=== PATIENT | female | born 1955 | race African-American/Black ===

== ENCOUNTER 2016-10-05 13:13 | Emergency (ER) ==
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
[2016-10-05 14:36] LABS: URINE SOURCE CLEAN CATCH
[2016-10-05 14:50] LABS: BILIRUBIN URINE NEGATIVE (NEGATIVE); BLOOD URINE NEGATIVE (NEGATIVE); CLARITY CLEAR (CLEAR); COLOR YELLOW; GLUCOSE URINE NEGATIVE (NEGATIVE); LEUKOCYTES URINE TRACE (NEGATIVE); NITRITE URINE NEGATIVE (NEGATIVE); PH URINE 6.5; PROTEIN URINE TRACE mg/dL (NEGATIVE); SP GRAVITY URINE 1.015; URINE MICROSCOPIC NEEDED? YES; UROBILINOGEN URINE 1+(1 mg/dL)
[2016-10-05 14:53] LABS: URINE EPITHELIAL CELLS <10 /HPF (<10); URINE WBC <10 /HPF (<10)
[2016-10-05 15:34] VITALS: BP 139/87
== END 2016-10-05 15:34 | disposition home or self-care (01) ==
LOC: P.ED 13:13
DX: R35.0 Frequency of micturition (principal); Z76.0 Encounter for issue of repeat prescription; M54.5 Low back pain; I25.10 Atherosclerotic heart disease of native coronary artery without angina pectoris; I10 Essential (primary) hypertension; E78.5 Hyperlipidemia, unspecified; F03.90 Unspecified dementia, unspecified severity, without behavioral disturbance, psychotic disturbance, mood disturbance, and anxiety; E11.9 Type 2 diabetes mellitus without complications; E07.9 Disorder of thyroid, unspecified
CPT/HCPCS: 81001; 99283